=== PATIENT | female | born 1950 | race Caucasian/White ===

== ENCOUNTER 2016-06-01 10:55 | Day surgery (SDC) | payer OTHER ==
--- NOTE | 2016-05-23 14:42 | GHP ---
[f rep st] PREOP HISTORY AND PHYSICAL DATE OF ADMISSION: 06/01/2016 DATE OF PLANNED PROCEDURE: 06/01/2016. PLANNED PROCEDURES: Hysteroscopy with dilation and curettage, and possible morcellation of endometr ial tissue. INDICATIONS: Patient is a 65-year-old, 0, who had a MRI for low back and sacrum pain. Ther e was an incidental finding of a 2.6 cm ovarian cyst, for which she had evaluated by pelvic ultrasou nd. The pelvic ultrasound showed a 2.6 cm simple left ovarian cyst, with a 5 mm endometrium with cy stic and hypoechoic regions. The patient was on hormone replacement for 7 years postmenopausally, b ut has not been on any for over 10 years. She has not had any episodes of postmenopausal bleeding. She has also not been sexually active since her in 2003, as she is still very devastat ed over this loss. We had a long discussion about the fact that she is not having any vaginal bleed ing, and the possibility of expected management versus an endometrial biopsy in the office, versus h ysteroscopy with morcellation of endometrial tissue or endometrial biopsy. The patient is very anxi ous about the second endometrium, and would like to undergo a hysteroscopy with dilation and curetta ge. Risks and benefits have been extensively reviewed with the patient. The patient has been prope rly consented. MEDICAL HISTORY: Anxiety, asthma, GERD, hyperlipidemia, urticaria pigmentosa. MEDICATIONS: Simvastatin, citalopram, Ventolin, omeprazole, vitamins, multivitamin. SURGICAL HISTORY: Tonsillectomy, two breast lumps removed, that were both benign, D and C, because of a polyp. ALLERGIES: No known drug allergies. SOCIAL HISTORY: Patient is . She denies tobacco, alcohol, or drug use. FAMILY MEDICAL HISTORY: Significant for a brother and cousin who both have schizophrenia. A brothe r who had non-Hodgkin's lymphoma, but is cancer free. 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 She has not had any postmenopausal bleeding. She is a 0. She denies any history of any abnormal Pap smears or sexually transmitted dise ases. She did have a history of a cervical polyp, which was removed. She had a D and C after the p olypectomy in 1983, which was benign. PHYSICAL EXAM: VITAL SIGNS: Stable. GENERAL APPEARANCE: Alert and oriented x3. HEART: Rate is irregularly irregular. LUNGS: Clear to auscultation bilaterally. ABDOMEN: Soft, nondistended, no ntender. EXTREMITIES: Reveal no calf tenderness or edema. PELVIC: Deferred at this time. Pelvic ultrasound was described above. ASSESSMENT AND PLAN: A 65-year-old, 0, with thickened endometrium. We discussed expected m anagement, versus endometrial biopsy in the office, versus dilation and curettage with hysteroscopy. Patient is electing to proceed with a hysteroscopy with morcellation of endometrial tissue, and D and C. Risks and benefits have been reviewed extensively with the patient. The patient has been pr operly consented. /[id number]/MODL
[2016-06-01] MEDS ORDERED: LIDOCAINE 1% 2 ML INJ ONE (11:04)
[2016-06-01] MEDS ORDERED: LR 1,000 ML IV ONE (11:20)
[2016-06-01] MEDS ORDERED: LIDOCAINE 1% 5 ML SDV ID PRN (11:20)
[2016-06-01] MEDS ORDERED: SILVER NITRATE APPLICATOR 1 APPL TP ONE (12:17)
[2016-06-01] MEDS ORDERED: fentaNYL 100 MCG/2 ML INJ ONE (12:25)
[2016-06-01] MEDS ORDERED: PROPOFOL/EMULSION 500 MG/50 ML BOTTLE IV ONE (12:25)
[2016-06-01] MEDS ORDERED: METOCLOPRAMIDE 10 MG/2 ML VIAL ONE (12:26)
[2016-06-01] MEDS ORDERED: KETOROLAC 30 MG/1 ML SDV ONE (12:26)
[2016-06-01] MEDS ORDERED: MIDAZOLAM 2 MG/2 ML VIAL ONE (12:26)
[2016-06-01] MEDS ORDERED: LIDOCAINE 2% 100 MG/5 ML SYR ONE (12:26)
[2016-06-01] MEDS ORDERED: DEXAMETHASONE 4 MG/ML VIAL ONE (12:26)
--- NOTE | 2016-06-01 13:22 | POSTOPPROG ---
Post Op Note Date of Operation: 06/01/16 Surgeon: Edith Guillaume Anesthesiologist: ede Anesthesia: IV Sedation Pre-op Diagnosis: thickened endometrium Post-op Diagnosis: endometrial polyp Indication: thickened endometrium Inf/Abcess present in the surg proc area at time of surgery?: No EBL: Minimal (uterine polyp)
--- NOTE | 2016-06-01 14:09 | GOP ---
[f rep st] OPERATIVE REPORT DATE OF OPERATION: 06/01/2016 SURGEON: Edith Guillaume DO ANESTHESIA: Sedation. ANESTHESIOLOGIST: Jayjay Vickers MD. PREOPERATIVE DIAGNOSIS: Thickened endometrium. POSTOPERATIVE DIAGNOSIS: Endometrial polyp. PROCEDURE PERFORMED: FINDINGS: 1. Mobile, small, midposition uterus. 1. Hysteroscopic findings: Endometrial polyp. 2. SPECIMENS: Endometrial polyp. ESTIMATED BLOOD LOSS: 10 cc. INDICATIONS: Patient is a 65-year-old, 0, who had an incidental finding of an ovarian cyst during an MRI on her low back. She had a followup pelvic ultrasound which showed a simple 2 cm ovar daksha cyst, but a thickened 5 mm endometrium with a cystic component. Management options were reviewe d with the patient. The patient elected to proceed with a hysteroscopy with morcellation of endomet rial tissue. Risks and benefits of the procedure were reviewed with the patient and the patient was properly consented. DESCRIPTION OF PROCEDURE: Patient was taken to the operating room with intravenous fluids in place. She was then placed on the operating room table in the dorsal supine position where general anesth esia was obtained. She was then repositioned into the dorsal lithotomy position with the Yellofin s tirrups and prepped and draped in the normal sterile fashion. Exam under anesthesia revealed a smal l, postmenopausal vagina with a mobile, midposition uterus. A speculum was then placed in the patie nt's vagina and an Allis clamp was used to grasp the anterior lip of the cervix and the cervix was t hen carefully dilated to allow for the introduction of an operative hysteroscope. The hysteroscope was introduced with fluid medium running. The endometrium was noted to be diffusely thin. However, there was 1 small polyp noted. The morcellator was then introduced and the polyp was morcellated a nd sent to Pathology. The hysteroscope was then withdrawn. No bleeding was noted from the cervix. Instruments were then removed from the patient's vagina. The patient was returned to the dorsal lockhart pine position, where she was easily awoken from anesthesia. Sponge count was correct. The patient was transported to the recovery room in stable condition. /[id number]/MODL
== END 2016-06-01 15:00 | disposition home or self-care (01) ==
LOC: FSGY 10:55
PROVIDERS: ATTEND Obstetrics & Gynecology
PROC: 0UDB8ZX Extraction of Endometrium, Via Natural or Artificial Opening Endoscopic, Diagnostic (ICD-10-PCS; principal; 2016-06-01 12:30)
DX: N84.0 Polyp of corpus uteri (principal); N83.202 Unspecified ovarian cyst, left side; N92.4 Excessive bleeding in the premenopausal period; F41.8 Other specified anxiety disorders; J45.909 Unspecified asthma, uncomplicated; E78.5 Hyperlipidemia, unspecified; K21.9 Gastro-esophageal reflux disease without esophagitis
CPT/HCPCS: 58558; C1782; J1100; J1885; J2001; J2250; J2704; J2765; J3010

== ENCOUNTER → 2016-08-09 | Outpatient (CLI) | payer OTHER | LOC: BMCIMAGING 13:54 | PROVIDERS: ATTEND Internal Medicine | DX: Z12.31 Encounter for screening mammogram for malignant neoplasm of breast (principal) | CPT/HCPCS: G0202 ==

== ENCOUNTER → 2017-08-14 | Outpatient (CLI) | payer OTHER | LOC: BMCIMAGING 15:00 | PROVIDERS: ATTEND Internal Medicine | DX: Z12.31 Encounter for screening mammogram for malignant neoplasm of breast (principal) ==

== ENCOUNTER → 2018-08-15 | Outpatient (CLI) | payer OTHER | LOC: BMCIMAGING 14:45 ==